=== PATIENT | female | born 1985 | race Caucasian/White ===

== ENCOUNTER 2017-06-20 12:08 | Emergency (ER) | payer OTHER ==
[2017-06-20 12:17] VITALS: BP 144/95; PULSE 76; TEMP 98.6; BMI 43.0
[2017-06-20] MEDS ORDERED: SODIUM CHLORIDE 1,000 ML IV STA ×2 (12:33→14:44)
[2017-06-20] MEDS ORDERED: ONDANSETRON 4 MG/2 ML VIAL IVPUSH ONE (12:33)
[2017-06-20] MEDS ORDERED: ONDANSETRON 4 MG/2 ML VIAL ONE (13:01)
--- NOTE | 2017-06-20 13:07 | PDOC ---
History of Present Illness - General Chief Complaint: Pain, Acute Stated Complaint: ABD PAIN Time Seen by Provider: 06/20/17 12:25 History Source: Patient - History of Present Illness Initial Comments: 06/20/17 13:01 31F with no pmh presenting with epigasting pain and 9 episodes of watery diarrhea since 7:30 this am. She states that she tried eating breakfast at 9:30 t but the pain got worse. pain is 10/10, cramping and episodic every 20min or so. Bm's don't alleviate the pain. No medication taken. Last period was a month ago, sexually active with condoms. No dysuria, no nausea or vomiting. Patient denies similar episodes in the past. 06/20/17 13:13 06/20/17 13:13 Past History - Past Medical History Allergies/Adverse Reactions: Allergies Allergy/AdvReac Type Severity Reaction Status Date / Time No Known Allergies Allergy Verified 06/20/17 12:09 Home Medications: Ambulatory Orders NK [No Known Home Medication] 06/20/17 Other medical history: DENIES - Psycho/Social/Smoking Cessation Hx Anxiety: No Suicidal Ideation: No Smoking History: Never smoked Hx Alcohol Use: No Drug/Substance Use Hx: No Substance Use Type: None Review of Systems - Review of Systems Constitutional: No: Chills, Diaphoresis HEENTM: No: Symptoms Reported Respiratory: No: Cough, Shortness of Breath, Hemoptysis Cardiac (ROS): No: Chest Pain, Palpitations, Syncope, Chest Tightness ABD/GI: No: Abd. Pain w/ defecation, Vomiting : No: Burning, Dysuria, Flank Pain *Physical Exam - Vital Signs Last Vital Signs Temp Pulse Resp BP Pulse Ox 98.6 F 76 16 144/95 100 06/20/17 12:09 06/20/17 12:09 06/20/17 12:09 06/20/17 12:09 06/20/17 12:09 - Physical Exam General Appearance: Yes: Nourished, Appropriately Dressed, Apparent Distress, Obese Respiratory/Chest: positive: Lungs Clear, Normal Breath Sounds. negative: Respiratory Distress Cardiovascular: positive: Regular Rhythm, Regular Rate, S1, S2 Gastrointestinal/Abdominal: positive: Increased Bowel Sounds, Protuberent, Tenderness (epigastric) Integumentary: positive: Normal Color, Clammy (during episode of cramping) Neurologic: positive: Fully Oriented, Alert ED Treatment Course - LABORATORY CBC & Chemistry Diagram: 06/20/17 12:41 06/20/17 12:41 Medical Decision Making - Medical Decision Making 06/20/17 13:14 31F with no pmh presenting with epigastic pain and 9 episodes of watery diarrhea. CBC, CMP, lipase ordered. Urinalysis and test. Fluid replacement and zofran. 06/20/17 13:14 06/20/17 13:16 06/20/17 16:09 Labs and lytes negative except for 71 glucose. tolerated PO, felt better with motrin. PAtient ok with d/c told to come back if symptoms recur. *DC/Admit/Observation/Transfer Diagnosis at time of Disposition: Gastroenteritis - Discharge Dispostion Condition at time of disposition: Stable
[2017-06-20 13:36] LABS: PH,URINE 5.5 (4.5-8); URINE APPEARANCE Clear; URINE BILIRUBIN Negative (NEGATIVE); URINE BLOOD Negative (NEGATIVE); URINE COLOR YELLOW; URINE GLUCOSE (UA) Negative (NEGATIVE); URINE KETONE Negative (NEGATIVE); URINE LEUK ESTERASE Negative (NEGATIVE); URINE NITRITE Negative (NEGATIVE); URINE PROTEIN Negative (NEGATIVE); URINE UROBILINOGEN 0.2 (0.2-1.0)
[2017-06-20] MEDS ORDERED: KETOROLAC TROMETHAMINE 30 MG/1 ML VIAL IVPUSH ONE (13:38)
[2017-06-20] MEDS ORDERED: KETOROLAC TROMETHAMINE 30 MG/1 ML VIAL ONE (13:48)
--- NOTE | 2017-06-20 13:57 | PDOC ---
Attending Attestation - Resident Resident Name: LupeChristian - ED Attending Attestation I have performed the following: I have examined & evaluated the patient, The case was reviewed & discussed with the resident, I agree w/resident's findings & plan, Exceptions are as noted - HPI HPI: 06/20/17 13:55 Agree with the resident's HPI as documented in the electronic medical record. - Physicial Exam PE: 06/20/17 13:55 Agree with the resident's physical examination as documented in the electronic medical record. - Medical Decision Making 06/20/17 13:55 31-year-old female with no significant past medical history presents the emergency Department with complaints of epigastric pain and copious diarrhea since 7:30 AM today with nausea but no vomiting. Differential diagnosis includes but is not limited to: Gastroenteritis, colitis, diverticulosis/ diverticulitis, pancreatitis, electrolyte abnormality, dehydration, toxic/ metabolic derangement. Plan: 1. Labs 2. Urine analysis 3. IV fluids for hydration 4. Antiemetics 5. Pain management 6. Observe and reevaluate 06/20/17 16:09 Addendum: Labs were reviewed and are noted in the EMR. The patient received IVF x 2 L and is feeling improved. She tolerated PO without [id number] and vomiting and wants to go home. She was advised to follow-up with her PCP and to return to the ED if her Sx persist, worsen or new Sx arise.
[2017-06-20 14:21] LABS: BASOPHIL 0.7 % (0-2.0); EOSINOPHIL 1.7 % (0-4.5); MCH 28.6 pg (25.7-33.7); MEAN CELL VOLUME 86.6 fl (80-96); MEAN PLT VOLUME 8.7 fl (7.5-11.1); NEUTROPHILS 69.7 % (42.8-82.8); PLATELET COUNT 379 K/MM3 (134-434); RDW 13.5 % (11.6-15.6); WHITE BLOOD COUNT 12.3 K/mm3 (4.0-10.8)
[2017-06-20 14:31] LABS: ALBUMIN 3.9 g/dl (3.5-5.0); ALK PHOS 86 U/L (32-92); ANION GAP 8 (8-16); BILIRUBIN,TOTAL 0.7 mg/dl (0.2-1.0); CALCIUM 9.5 mg/dl (8.4-10.2); CO2 23 mmol/L (22-28); CREATININE 0.6 mg/dl (0.6-1.3); GLUCOSE,RANDOM 71 mg/dl (74-106); MAGNESIUM 1.9 mg/dL (1.8-2.4); PHOSPHOROUS 3.7 mg/dl (2.5-4.6); SGOT/AST 21 U/L (10-42); SGPT/ALT 31 U/L (10-40); TOT PROT 6.9 g/dl (6.4-8.3)
== END 2017-06-20 16:21 | disposition home or self-care (01) ==
LOC: FER 12:08
PROC: 3E0333Z Introduction of Anti-inflammatory into Peripheral Vein, Percutaneous Approach (ICD-10-PCS; principal; 2017-06-20)
PROC: 3E033GC Introduction of Other Therapeutic Substance into Peripheral Vein, Percutaneous Approach (ICD-10-PCS; 2017-06-20)
PROC: 3E0337Z Introduction of Electrolytic and Water Balance Substance into Peripheral Vein, Percutaneous Approach (ICD-10-PCS; 2017-06-20)
DX: K52.9 Noninfective gastroenteritis and colitis, unspecified (principal)
CPT/HCPCS: 36415; 80053; 81003; 83690; 83735; 84100; 84703; 85025; 99282-25

== ENCOUNTER 2019-01-28 15:08 | Emergency (ER) | payer OTHER ==
[2019-01-28 15:11] VITALS: BMI 45.6
[2019-01-28 15:23] VITALS: BP 120/67; PULSE 82; TEMP 98.6
--- NOTE | 2019-01-28 15:29 | PDOC ---
Attending Attestation - Resident Resident Name: [email or web address] - ED Attending Attestation I have performed the following: I have examined & evaluated the patient, The case was reviewed & discussed with the resident, I agree w/resident's findings & plan, Exceptions are as noted - HPI HPI: 01/28/19 16:51 Complains of right facial pain, headache, for several days. No fever/chills. Mild URI symptoms. No visual or focal neurologic symptoms. - Physicial Exam PE: 01/28/19 16:52 Alert and oriented well-developed, significantly obese, but no acute distress cheerful and cooperative Afebrile, vital signs normal Head atraumatic. The "lump" in the occipital area is a normal skull contour. HEENT: There is significant tenderness over the right maxillary and frontal sinuses to palpation. There is mild nasal congestion. Ears and throat are clear Neck supple without bruit mass or nodes Chest clear CV regular without murmur rub or gallop Abdomen benign Neurological C2 to 12 intact. No focal sensory or motor deficits. Strength full and symmetric. Gait stable and unimpaired - Medical Decision Making 01/28/19 16:53 Impression: Sinusitis, resultant headache, no neurological signs or symptoms suggestive of intracranial process Plan: Empiric antibiotics, analgesics, rest, and follow-up ER if symptoms worsen , otherwise primary physician. Fully ambulatory and in no significant pain or other distress upon discharge
--- NOTE | 2019-01-28 15:38 | PDOC ---
History of Present Illness - General Chief Complaint: Pain, Acute Stated Complaint: LUMP IN BACK OF HEAD PAINFUL Time Seen by Provider: 01/28/19 15:15 - History of Present Illness Initial Comments: Toya Garcia is a 33yo otherwise healthy woman who presents reporting a right- sided headache and "lump" in the back of her head. Ms Garcia reports that she has been having frequent headaches for the past several weeks. She has been taking ibuprofen at home with significant improvement in the pain, but the headaches return daily. She additionally reports being unusually fatigued and a general sense of malaise for the past two weeks. She initially made an appointment to see her regular doctor, but she could not be seen until next week. Today, she noted that she had pain only on the right side of her head with posterior neck pain. She also noted right upper tooth pain and severe pressure behind her eye. She did not note any rhinorrhea or cough, but she does state that she has 6 children at home who attend school and often have colds. Due to the neck pain, she tried to feel if there was something in the pack of her head or neck and thought she felt a lump there. She states that the lump was painful when she pressed on it, but mostly it increased the sensation of pressure behind her eye. She additionally notes that her children were making noise when they came home from school, and the noise was bothering her much more than normal. She has not noted any fevers, chills, SOB, cough, chest pain, n/v/d/c, ear pain, blurry vision, or other symptoms recently. Past History - Past Medical History Allergies/Adverse Reactions: Allergies Allergy/AdvReac Type Severity Reaction Status Date / Time No Known Allergies Allergy Verified 01/28/19 15:09 Home Medications: Ambulatory Orders Cefuroxime Axetil [Cefuroxime] 500 mg PO Q12H #14 tablet 01/28/19 COPD: No - Suicide/Smoking/Psychosocial Hx Smoking History: Never smoked Hx Alcohol Use: No Drug/Substance Use Hx: No Substance Use Type: None Review of Systems - Review of Systems Comments:: General: No fevers, no chills, no weight or appetite change, no malaise HEENT: No changes in vision, no changes in hearing, no sore throat. See HPI CV: No chest pain, no palpitations, no LE edema Pulm: No SOB, no cough, no wheezing GI: No nausea or vomiting, no change in bowel habits, no melena : No frequency, no urgency, no dysuria Musc: No back pain, no joint pain, no recent injury Skin: No rash, no lesions, no erythema Endo: No excessive thirst, no heat/cold intolerance Heme: No unusual bruising or bleeding, no swollen glands Neuro: No syncope, no numbness/tingling, no focal weakness Vasc: No claudication Psych: No recent change in mood, no SI or HI *Physical Exam - Vital Signs Last Vital Signs Temp Pulse Resp BP Pulse Ox 0/0 L 01/28/19 15:09 - Physical Exam Comments: General: Comfortable, no acute distress HEENT: PERRL, EOMI, MMM, voice normal, normal neck ROM, no LAD Cards: RRR, no murmur appreciated Pulm: Comfortable on room air, clear to auscultation bilaterally Abd: Soft, nontender, nondistended Ext: Atraumatic. LLE ROM limited by pain. L knee swollen w/ palpable fullness in posterior knee. No calf tenderness. Strength 5/5 and equal bilaterally. Vasc: Extremities WWP. Palpable radial and pedal pulses bilaterally Skin: Normal color, no rashes or lesions Neuro: A&Ox3, CN grossly intact, normal speech, motor/sensory grossly intact and symmetric Psych: Mood appropriate to situation Moderate Sedation - Procedure Monitoring Vital Signs: Procedure Monitoring Vital Signs Temperature Pulse Rate Respiratory Rate Blood Pressure 0/0 L 01/28/19 15:09 O2 Sat by Pulse Oximetry (%) Medical Decision Making - Medical Decision Making 01/28/19 15:39 Toya Garcia is a 33yo otherwise healthy woman who presents with right-sided headache, right eye pressure, right upper tooth pain, and posterior neck stiffness. She endorses 2 weeks of headaches and general malaise prior to today. - Initial complaint of "lump" on her neck; however, no abnormality found on physical exam. ROM intact though limited by pain. - TTP over right maxillary and frontal sinuses. Along with headache and malaise , most likely sinusitis. As symptoms have been present for 2 weeks and worsened today, will give antibiotics. - Discussed with Ms Garcia, including instructions for home care and return precautions. She understands and agrees with the plan. Discussed with Dr Michael. Scarlet Kang PGY1 *DC/Admit/Observation/Transfer Diagnosis at time of Disposition: Sinusitis - Discharge Dispostion Disposition: HOME Condition at time of disposition: Stable Decision to Admit order: No - Prescriptions Prescriptions: Cefuroxime Axetil [Cefuroxime] 500 mg PO Q12H #14 tablet - Referrals - Patient Instructions Printed Discharge Instructions: DI for Sinusitis Additional Instructions: Discharge Instructions: You were seen in the emergency department for right-sided head pain, eye pressure, and tooth pain. You were diagnosed with sinusitis (sinus infection). You have been prescribed an antibiotic and pain medication for your symptoms. Home Care: - Take the antibiotic as twice per day for one week. Do not stop taking this medicaiton early even if you feel better. - You may take acetaminophen (Tylenol) 1000mg every 6-8 hours as needed for pain. Pay attention to how much acetaminophen you are taking; do NOT take more than 4000mg (4g) of acetaminophen per day - You may wish to try additional over the counter medications such as Sudafed for congestion. This is available at any pharmacy. Follow Up: - Make an appointment to see your primary doctor within the next week if symptoms do not improve. - Seek immediate medical care if you have worsening symptoms, any neurological symptoms such as weakness or numbness, severe headache, loss of consciousness, fevers to 101F or higher after 2-3 days of your antibiotic or any medical emergency. - Post Discharge Activity
[2019-01-28] MEDS ORDERED: ACETAMINOPHEN 325 MG TABLET (FP) PO ONE (15:50)
[2019-01-28] MEDS ORDERED: ACETAMINOPHEN 500 MG TABLET (FP) ONE (15:51)
== END 2019-01-28 15:59 | disposition home or self-care (01) ==
LOC: FER 15:08
DX: J32.9 Chronic sinusitis, unspecified (principal)
CPT/HCPCS: 99281-25